=== PATIENT | female | born 1955 | race Caucasian/White ===

== ENCOUNTER 2018-01-04 07:04 | Day surgery (SDC) | payer MEDICAID ==
[2018-01-02 13:44] LABS: Basophils # (auto) 0 uL; Basophils % (auto) 0.8 % (0.0-2.0); Eosinophils # (auto) 0.2 uL; Eosinophils % (auto) 3.8 % (0.0-7.0); Lymphocytes # (auto) 1.5 uL; Lymphocytes % (auto) 30.6 % (10.0-50.0); Mean Corpuscular Hemoglobin 31.3 pg (28.0-32.0); Mean Corpuscular Hgb Conc. 33.4 g/dL (32.0-36.0); Mean Corpuscular Volume 93.5 fL (80.0-100.0); Monocytes # (auto) 0.6 uL; Monocytes % (auto) 11.8 % (0.0-12.0); Neutrophils # (auto) 2.5 uL; Nucleated Red Blood Cells % 0.2 %; Platelet Count (auto) 385 10^3/uL (140-450); Red Blood Cells 4.17 10^6/uL (4.0-5.20); Red Cell Distribution Width 13.2 % (11.8-14.3); White Blood Cell 4.8 10^3/uL (4.4-10.8)
[2018-01-02 13:58] LABS: INR 0.93 (0.9-1.15); Partial Thromboplastin Time 28.2 sec (23.78-33.04)
[2018-01-02 14:03] LABS: Urine Bacteria FEW /hpf (None Seen); Urine Blood Negative /uL (Negative); Urine Specific Gravity 1.005 (1.001-1.035); Urine WBC 4 /hpf (0 - 5)
[2018-01-02 14:09] LABS: Albumin 3.5 g/dL (3.4-5.0); Calcium 8.6 mg/dL (8.5-10.1); Potassium 4.1 mmol/L (3.5-5.1)
[2018-01-02 14:13] LABS: BUN/Creatinine Ratio 14.5; Bilirubin, Total 0.3 mg/dL (0.2-1.0); Total Protein 7.8 g/dL (6.4-8.2)
[~2018-01-04] VITALS: Ht 165.1 cm; Wt 88.5 kg
[~2018-01-04 07:04] MED LIST: ALPR1TAB2 PO; CHOL20007 PO; MIRT30TA PO; NORT50CA57 PO; OMEP20TA PO; TRAZ100T2 PO
[2018-01-04] MEDS ORDERED: CLINDAMYCIN 600MG IV 50 ML IV ONE (08:31)
[2018-01-04] MEDS ORDERED: fentaNYL CITRATE 100 MCG/2 ML VL ONE (09:05)
[2018-01-04] MEDS ORDERED: SODIUM CHLORIDE LOCK 10 ML ONE (09:06)
[2018-01-04] MEDS ORDERED: ONDANSETRON HCL 4 MG/2 ML VIAL ONE (09:06)
[2018-01-04] MEDS ORDERED: PROPOFOL 10 MG/ML 20 ML IV ONE (09:06)
[2018-01-04] MEDS ORDERED: MIDAZOLAM HCL 1MG/1ML-2 ML VIAL ONE (09:06)
[2018-01-04] MEDS ORDERED: BUPIVACAINE 0.75% INJ 10ML MPV SDV IJ ONE (09:16)
[2018-01-04] MEDS ORDERED: NEOMYCIN-BACITRACIN-POLYM 15GM TOP OINT TOP ONE (09:16)
[2018-01-04] MEDS ORDERED: METOCLOPRAMIDE HCL 5MG/ml INJ 2ml VIAL IV ONE (09:45)
[2018-01-04] MEDS ORDERED: HYDROmorphone HCL 2 MG/ML VL IV PRN (09:45)
[2018-01-04] MEDS ORDERED: KETOROLAC TROMETH 30 MG/ML 1ML VIAL IV ONE (09:45)
[2018-01-04 10:40] VITALS: BP 130/78
== END 2018-01-04 10:55 | disposition home or self-care (01) ==
LOC: SUR 07:04
PROVIDERS: ATTEND Podiatrist Foot & Ankle Surgery
DX: M21.612 Bunion of left foot (principal); M20.12 Hallux valgus (acquired), left foot; E66.9 Obesity, unspecified; M51.36 Other intervertebral disc degeneration, lumbar region; F41.9 Anxiety disorder, unspecified; G47.00 Insomnia, unspecified; E78.5 Hyperlipidemia, unspecified; J44.9 Chronic obstructive pulmonary disease, unspecified; N18.2 Chronic kidney disease, stage 2 (mild); G47.9 Sleep disorder, unspecified; Z88.0 Allergy status to penicillin; Z88.2 Allergy status to sulfonamides; Z88.1 Allergy status to other antibiotic agents; Z68.32 Body mass index [BMI] 32.0-32.9, adult; Z98.890 Other specified postprocedural states; Z79.899 Other long term (current) drug therapy
CPT/HCPCS: 28296; J3010; L3260; Q4137; 36415; 73620; 80053; 81001; 85025; 85610; 85730; C1713; C1769; J2250; J2405; J2704; J3490

== ENCOUNTER → 2018-06-14 | Day surgery (SDC) | payer MEDICAID ==
[2018-06-09 11:21] LABS: Urine WBC None Seen /hpf (0 - 5)
[2018-06-09 11:26] LABS: Basophils # (auto) 0 uL; Basophils % (auto) 0.5 % (0.0-2.0); Eosinophils # (auto) 0.1 uL; Eosinophils % (auto) 1.6 % (0.0-7.0); Hematocrit 38.6 % (36.0-46.0); Hemoglobin 12.8 g/dL (12.2-16.2); Lymphocytes # (auto) 1.6 uL; Mean Corpuscular Hgb Conc. 33.3 g/dL (32.0-36.0); Mean Corpuscular Volume 93.1 fL (80.0-100.0); Monocytes # (auto) 0.6 uL; Monocytes % (auto) 10.5 % (0.0-12.0); Neutrophils # (auto) 3.3 uL; Neutrophils % (auto) 58.4 % (37.0-80.0); Nucleated Red Blood Cells % 0.1 %; Platelet Count (auto) 342 10^3/uL (140-450); Red Blood Cells 4.15 10^6/uL (4.0-5.20); Red Cell Distribution Width 13.2 % (11.8-14.3); White Blood Cell 5.6 10^3/uL (4.4-10.8)
[2018-06-09 11:28] LABS: Urine Bacteria NONE SEEN /hpf (None Seen); Urine Blood Negative /uL (Negative); Urine Specific Gravity 1.007 (1.001-1.035)
[2018-06-09 11:46] LABS: Albumin 3.7 g/dL (3.4-5.0); Calcium 8.7 mg/dL (8.5-10.1); INR 0.91 (0.9-1.15); Partial Thromboplastin Time 27.8 sec (23.78-33.04); Potassium 4.1 mmol/L (3.5-5.1); Prothrombin Time 9.8 sec (9.27-12.13)
[2018-06-09 11:49] LABS: BUN/Creatinine Ratio 17.9
[2018-06-09 11:52] LABS: Bilirubin, Total 0.2 mg/dL (0.2-1.0); Total Protein 7.5 g/dL (6.4-8.2)
[~2018-06-14] VITALS: Ht 165.1 cm; Wt 83.9 kg
[~2018-06-14] MED LIST changes: +ATEN-60 PO; +CLINDAMYCIN 600MG IV 50 ML IV ONE; +LIDOCAINE W/ EPINEPHRINE 1 % INJ 30ML ONE; +MIDAZOLAM HCL 1MG/1ML-2 ML VIAL ONE; +ONDANSETRON HCL 4 MG/2 ML VIAL ONE; +PROPOFOL 10 MG/ML 20 ML IV ONE; +ROPIVACAINE 0.5% (5MG/ML) 20ML AMPULE IJ ONE; +SODIUM CHLORIDE LOCK 10 ML ONE; +fentaNYL CITRATE 100 MCG/2 ML VL ONE
[2018-06-14 12:00] VITALS: BP 139/89
== END | disposition home or self-care (01) ==
LOC: SUR 08:09
PROVIDERS: ATTEND Podiatrist Foot & Ankle Surgery
DX: M20.11 Hallux valgus (acquired), right foot (principal); I12.9 Hypertensive chronic kidney disease with stage 1 through stage 4 chronic kidney disease, or unspecified chronic kidney disease; N18.3 Chronic kidney disease, stage 3 (moderate); E78.5 Hyperlipidemia, unspecified; E66.01 Morbid (severe) obesity due to excess calories; K21.9 Gastro-esophageal reflux disease without esophagitis; G89.29 Other chronic pain; F41.9 Anxiety disorder, unspecified; G47.00 Insomnia, unspecified; Z88.0 Allergy status to penicillin; Z98.890 Other specified postprocedural states; Z88.5 Allergy status to narcotic agent; Z79.899 Other long term (current) drug therapy
CPT/HCPCS: 28296; 36415; 73630; 80053; 81001; 85025; 85610; 85730; C1769; J2001; J2250; J2405; J2704; J2795; J3010; J3490; J7030; J7040; Q4137